=== PATIENT | female | born 1985 | race Two or more races ===

== ENCOUNTER 2022-03-08 18:14 | Emergency (ER) | payer MEDICAID, OTHER ==
[~2022-03-08] VITALS: Ht 157.5 cm; Wt 95.3 kg
[2022-03-08 18:40] VITALS: BP 148/83
== END 2022-03-08 22:21 | disposition left against medical advice (07) ==
LOC: ER 18:14
DX: M25.572 Pain in left ankle and joints of left foot (principal); Z53.21 Procedure and treatment not carried out due to patient leaving prior to being seen by health care provider